=== PATIENT | female | born 1990 | race Caucasian/White ===

== ENCOUNTER → 2016-10-07 | Outpatient (CLI) | payer MEDICAID ==
--- NOTE | 2016-10-07 17:01 | US ---
Complete Pelvic Ultrasound INDICATION: Pelvic pain. TECHNIQUE: Transabdominal and transvaginal pelvic ultrasound is performed. FINDINGS: The bladder was not full during the scan. Uterus measures 8.2 x 3.8 x 5.8 cm. There is no f ibroid. Endometrium measures 5.5 mm. Right ovary measures 3.2 x 2.1 x 2.9 cm. Left ovary measures 3.2 x 1.4 x 2.3 cm. Both are sonographic ally normal. There is a physiologic amount of free fluid in the pelvis. IMPRESSION: Normal complete pelvic ultrasound.
== END ==
LOC: BRMIMAGING 13:34
PROVIDERS: ATTEND Nurse Practitioner
DX: R10.2 Pelvic and perineal pain (principal)
CPT/HCPCS: 76856-PO